=== PATIENT | female | born 1960 | race Two or more races ===

== ENCOUNTER 2021-03-17 14:07 | Emergency (ER) | payer MEDICAID, OTHER ==
[~2021-03-17] VITALS: Ht 160 cm; Wt 65.8 kg
[2021-03-17 14:15] VITALS: BP 141/65
== END 2021-03-17 16:23 | disposition home or self-care (01) ==
LOC: ER 14:07
DX: S93.402A Sprain of unspecified ligament of left ankle, initial encounter (principal); S83.92XA Sprain of unspecified site of left knee, initial encounter; Z88.0 Allergy status to penicillin; X50.1XXA Overexertion from prolonged static or awkward postures, initial encounter; Y93.89 Activity, other specified; Y92.89 Other specified places as the place of occurrence of the external cause; Y99.8 Other external cause status
CPT/HCPCS: 73562; 73630